=== PATIENT | female | born 1980 | race African-American/Black ===

== ENCOUNTER 2021-04-18 16:50 | Emergency (ER) | payer OTHER ==
[~2021-04-18] VITALS: Ht 160 cm; Wt 93.0 kg
[2021-04-18 17:13] VITALS: BP 141/87
[2021-04-18] MEDS ORDERED: BENZ100C6 PO (21:15)
--- NOTE | 2021-04-18 21:37 | NUR ---
Patient discharged with v/s stable. Written and verbal after care instructions given and explained. Patient alert, oriented and verbalized understanding of instructions. Ambulatory with steady gait. All questions addressed prior to discharge. ID band removed. Patient advised to follow up with PMD. Rx of BENZONATE given. Patient educated on indication of medication including possible reaction and side effects. Opportunity to ask questions provided and answered.
== END 2021-04-18 21:37 | disposition home or self-care (01) ==
LOC: MED 16:50
DX: R05.9 Cough, unspecified (principal); L98.8 Other specified disorders of the skin and subcutaneous tissue; Z79.899 Other long term (current) drug therapy
CPT/HCPCS: 99283

== ENCOUNTER 2022-02-01 11:28 | Emergency (ER) | payer OTHER ==
[~2022-02-01] VITALS: Ht 160 cm; Wt 88.0 kg
[~2022-02-01 11:28] MED LIST: BENZ100C6 PO
[2022-02-01 11:31] VITALS: BP 124/84
--- NOTE | 2022-02-01 12:30 | NUR ---
Patient being evaluated by FIDELINA SNYDER at [facility].
[2022-02-01] MEDS ORDERED: IBUPROFEN 800 MG TAB PO ONE (12:55)
[2022-02-01] MEDS ORDERED: IBUP-2213 PO (13:12)
--- NOTE | 2022-02-01 13:15 | NUR ---
per er mid level, velcro wrist splint applied to r wrist. + cms
[2022-02-01 13:25] VITALS: BP 129/75
== END 2022-02-01 13:58 | disposition home or self-care (01) ==
LOC: MED 11:28
DX: S63.501A Unspecified sprain of right wrist, initial encounter (principal); E03.9 Hypothyroidism, unspecified; D50.9 Iron deficiency anemia, unspecified; X58.XXXA Exposure to other specified factors, initial encounter; Y93.89 Activity, other specified; Y92.89 Other specified places as the place of occurrence of the external cause; Y99.8 Other external cause status
CPT/HCPCS: 73110; 99283

== ENCOUNTER 2022-10-17 10:16 | Emergency (ER) | payer OTHER ==
[~2022-10-17] VITALS: Ht 175.3 cm; Wt 81.6 kg
[~2022-10-17 10:16] MED LIST changes: +IBUP-2213 PO
[2022-10-17 10:32] VITALS: BP 129/77; PULSE 89; RESP 18; TEMP 97; O2SAT 98
--- NOTE | 2022-10-17 10:57 | NUR ---
Patient ambulated to bed 4.
--- NOTE | 2022-10-17 11:00 | NUR ---
bibs for left ankle pain 09/24 x 1 week. worse today. no fall or trauma. walks to work. ambulatory
[2022-10-17] MEDS ORDERED: IBUP-2213 PO (11:21)
[2022-10-17 13:11] VITALS: BP 132/74; PULSE 88; RESP 19; TEMP 98; O2SAT 98
== END 2022-10-17 13:13 | disposition home or self-care (01) ==
LOC: MED 10:16
DX: S93.492A Sprain of other ligament of left ankle, initial encounter (principal); Z88.5 Allergy status to narcotic agent; Z79.899 Other long term (current) drug therapy; X58.XXXA Exposure to other specified factors, initial encounter; Y93.89 Activity, other specified; Y92.89 Other specified places as the place of occurrence of the external cause; Y99.8 Other external cause status
CPT/HCPCS: 29515; 73610; 99283; Q0092

== ENCOUNTER 2023-03-28 09:54 | Emergency (ER) | payer OTHER ==
[~2023-03-28] VITALS: Ht 167.6 cm; Wt 72.6 kg
[2023-03-28 10:06] VITALS: BP 124/76; PULSE 89; RESP 18; TEMP 98; O2SAT 98
[2023-03-28] MEDS ORDERED: IBUPROFEN 800 MG TAB PO ONE (10:40)
[2023-03-28] MEDS ORDERED: IBUP-2213 PO (12:29)
== END 2023-03-28 12:46 | disposition home or self-care (01) ==
LOC: MED 09:54
DX: M25.561 Pain in right knee (principal); M25.562 Pain in left knee; M89.8X6 Other specified disorders of bone, lower leg; E03.9 Hypothyroidism, unspecified; Z79.899 Other long term (current) drug therapy; Z79.1 Long term (current) use of non-steroidal anti-inflammatories (NSAID); Z88.5 Allergy status to narcotic agent
CPT/HCPCS: 73562; 99283

== ENCOUNTER 2023-04-10 10:42 | Emergency (ER) | payer OTHER ==
[~2023-04-10] VITALS: Ht 160 cm; Wt 92.5 kg
[2023-04-10 10:46] VITALS: BP 109/71; RESP 15; TEMP 98.1; O2SAT 100
[2023-04-10] MEDS ORDERED: ACETAMINOPHEN EXTRA STRENGTH 500 MG TAB PO ONE (11:20)
[2023-04-10] MEDS ORDERED: IBUPROFEN 400 MG TAB PO ONE (11:20)
[2023-04-10 12:33] VITALS: BP 112/70; PULSE 89; RESP 16; TEMP 98.1; O2SAT 100
== END 2023-04-10 12:33 | disposition home or self-care (01) ==
LOC: MED 10:42
DX: R22.31 Localized swelling, mass and lump, right upper limb (principal); M79.641 Pain in right hand; Z79.899 Other long term (current) drug therapy; Z79.1 Long term (current) use of non-steroidal anti-inflammatories (NSAID); Z88.5 Allergy status to narcotic agent
CPT/HCPCS: 73130; 99283

== ENCOUNTER 2023-07-17 15:05 | Emergency (ER) | payer OTHER ==
[~2023-07-17] VITALS: Ht 157.5 cm; Wt 92.5 kg
[2023-07-17 15:07] VITALS: BP 120/70; PULSE 82; RESP 18; TEMP 97.2; O2SAT 100
[2023-07-17 17:23] VITALS: BP 120/70; PULSE 80; RESP 18; TEMP 97.5; O2SAT 100
[2023-07-17] MEDS: IBUPROFEN 600 MG TAB PO ONE (18:36)
== END 2023-07-17 18:49 | disposition home or self-care (01) ==
LOC: MED 15:05
DX: S83.8X1A Sprain of other specified parts of right knee, initial encounter (principal); Z79.1 Long term (current) use of non-steroidal anti-inflammatories (NSAID); Z79.899 Other long term (current) drug therapy; W01.198A Fall on same level from slipping, tripping and stumbling with subsequent striking against other object, initial encounter; Y93.89 Activity, other specified; Y92.89 Other specified places as the place of occurrence of the external cause; Y99.8 Other external cause status
CPT/HCPCS: 73562; 99283